=== PATIENT | male | born 1935 | race Caucasian/White ===

== ENCOUNTER 2020-01-24 07:01 | Observation (INO) ==
[~2020-01-24 07:01] MED LIST: BACITRACIN INJ 50,000 UNIT VIAL ONE; BUPIVACAINE 0.25% 30 ML VIAL ONE; LIDOCAINE HCL 1% 20 ML VIAL ONE
--- OUTSIDE RECORDS SUMMARY | 2020-01-24 07:05 | External Medical Summary | Continuity of Care Document ---
:1935 Author Name Gabriela Dominguez, Provider Address Unavailable Unavailable , Care Team Providers Name Role Phone Zan FELIX M.D., E. 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 02-Dec-2012 13:30 Encounter Diagnosis: Problem not documented
[2020-01-24] MEDS ORDERED: fentaNYL citrate 100 MCG/2 ML VIAL ONE (07:28)
[2020-01-24] MEDS ORDERED: CEFAZOLIN 250 MG/ML 1 GM VIAL ONE (07:28)
[2020-01-24] MEDS ORDERED: MIDAZOLAM HCL 5 MG/ML 1 ML VIAL ONE (07:28)
--- NOTE | 2020-01-24 07:56 | Pre Anesthesia Assessment ---
Date of Service January 24, 2020 Pre Sedation Assessment Vital Signs Temp Pulse Resp BP Pulse Ox 01/24/20 07:15 37.2 C 55 L 20 181/89 H 97 Cardiovascular + bradycardic Respiratory normal respiratory effort, lungs clear to auscultation Pre-Sedation Airway Assessment Smoking Status: Never smoker Hx Sleep Apnea: No Short, Thick Neck: No Thyromental Distance: > or= 3.5 Finger Breadths Oral Cavity: + WNL Mallampati Class: I ASA: ASA3 NPO Status Date of Last Intake of Fluids: 01/23/20 Time of Last Intake of Fluids: 22:00 Date of Last Intake of Solid Food: 01/23/20 Time of Last Intake of Solid Foods: 20:00 Procedure Planning Contraindications for Sedation: none Current Medications Reviewed: Yes Notes The planned sedation has been discussed with the patient. Informed Consent was obtained. I have identified the patient, determined the appropriateness of sedation and have assessed the patient immediately prior to the procedure. All medicine(s) and interventions are by my order.
--- NOTE | 2020-01-24 07:56 | History & Physical Bridge Note ---
Date of Service January 24, 2020 History & Physical Bridge Note I have examined the patient, reviewed the History & Physical and in the interval since the performance of the History & Physical I have noted the following changes of clinical significance: no changes noted
--- NOTE | 2020-01-24 09:37 | Post Anesthesia Assessment ---
Date of Service January 24, 2020 Post Sedation Assessment Vital Signs Temp Pulse Resp BP Pulse Ox 01/24/20 07:15 37.2 C 55 L 20 181/89 H 97 Recovery Score Activity: Moves 4 extremities Respiration: Deep Breath/Cough Circulation: +/-20% PreAnes Value Consciousness: Fully Awake Oxygen Saturation: > 92% On Room Air Discharge Sedation Level of Care: Fast Track Phase II Post Sedation Plan On clinical assessment, the patient appears to have tolerated the sedation without complications. Patient is recovering as anticipated. Patient will continue to be monitored by nursing and may be discharged when sedation discharge criteria are met per below protocol. Upon Completions of procedure up to 15 minutes continue every 5 minute vital signs and the P.A.R. score; then discharge to a Phase I or Fast Track to Phase II per the following guidelines: * Discharge Patient to appropriate Phase II area if PAR is 8 or greater or return to pre- procedure baseline. The post - procedure orders will be as directed. * If PAR score is less than 8 or not return to pre-procedure baseline then patient will follow Phase I monitoring till PAR is reached for Phase II. The Phase I may be done in procedure room or may call to secure a Phase I area. * If naloxone or flumazenil are used for reversal, hold in Phase I for continued monitoring from when last reversal dose was given for a minimum of 60 minutes or longer pending the nurse and/or physician discretion of patient condition before discharge to Phase II. Please call the Sedation Physician to re-evaluate and complete post-note for discharge to Phase II area. Do NOT discharge from procedure sedation or Phase 1 until post- sedation evaluation note is complete by procedure /sedation MD Sedation Discharge Instructions to be given to the patient at discharge to home.
[2020-01-24] MEDS ORDERED: ACETAMINOPHEN 325 MG TAB PO PRN (09:38)
[2020-01-24] MEDS ORDERED: OXYCODONE/ACETAMINOPHEN 5mg/325mg TAB PO PRN (09:38)
--- NOTE | 2020-01-24 09:38 | Operative Report ---
Post Operative Report Pre & Post Diagnosis SSS Operation Date: 01/24/20 08:00 <No data on this case meets the specified criteria> I identified the patient and participated in the time-out.: Yes Procedure Operation Date: 01/24/20 08:00 Actual Procedures p Pacer with A/V Leads (Dual) - Bianca Reilly DO EGM intracardiac HIS bundle mapping Surgeon Bianca Reilly DO Front Desk Receptionist none Estimated Blood Loss 20 Findings Consistent with Post-Op Diagnosis Specimens none Description of Procedure see official report I attest to the content of the Intraoperative Record and any orders documented therein. Any exceptions are noted below.
[2020-01-24] MEDS ORDERED: METOPROLOL TARTRATE 25 MG TAB PO PRN (09:39)
[2020-01-24] MEDS ORDERED: ASPIRIN 81 MG CHEW PO PRN (09:39)
[2020-01-24] MEDS ORDERED: INSULIN ASPART PER UNIT SQ SCH (09:45)
--- NOTE | 2020-01-24 10:04 | Discharge Summary ---
Date of Service January 25, 2020 Admission HPI Per Admitting Provider Pt admitted for elective ppm due to SSS. Admission Exam Per Admitting Provider aaox3, NAD NC/AT, EOMI Supple No JVD bradycardia S1/S2, No murmur CTA b/l no w/r/r soft nt/nd no LE edema b/l skin intact no focal deficits Principal Diagnosis SSS s/p ppm Discharge Exam aaox3, NAD NC/AT, EOMI Supple No JVD Nrl S1/S2, No murmur CTA b/l no w/r/r soft nt/nd no LE edema b/l skin intact no focal deficits left pectoral incision intact, no hematoma mild ecchymosis Discharge Data Allergies Allergy/AdvReac Type Severity Reaction Status Date / Time statins Allergy Cramping Uncoded 01/24/20 07:33 of the Muscles Procedures Performed Operation Date: 01/24/20 08:00 Actual Procedures p Pacer with A/V Leads (Dual) - Bianca Reilly, Ordered Studies ECG: AP-VS CXR: No PTX, leads in position Pacemaker Interrogation: Normal function and stable lead testing since implant 01/24/20 06:45 EP Lab Images for PACS ONCE Hospital Course (1) SSS (sick sinus syndrome): Total Time Total Time Spent Total Time Spent (In Minutes): 35 Total Time Includes: Examination of the Patient, Discharge Planning, Medication Reconciliation and Other Discharge Plan Discharge Items Patient Disposition: Home - Self-Care Reason For Visit: Sick Sinus Syndrome; Bradycardia Discharge Diagnosis: SSS s/p ppm Condition on Discharge: Good Activity: As commented below Activity Comment: do not lift the left elbow over the left shoulder for 1 month Lifting: No more than 10 pounds Lifting Comment: do not lift more than 10 pounds with the left arm for 2 weeks Bathing: Keep incision dry Bathing Comment: keep dressing on and dry until wound check Sexual Activity: After two weeks Non-emergency contact: [facility] Call non-emergency contact if: you have any medication questions Follow-up/Referrals: Judith Martinez PA-C [Primary Care Provider] - Diet: Heart Healthy Addtl Attending Provider Instructions: Device and wound check as scheduled next week in [facility] [place] Pending Studies at Discharge: No Stand-Alone Forms: [employer] Medications and DC Order Prescriptions: New metoprolol succinate 25 mg Tablet Extended Release 24 Hr 25 mg PO QAM 30 Days Qty: 30 RF: 0 Continued levothyroxine 25 mcg Tablet 25 mcg PO DAILY RF: 0 insulin aspart U-100 100 unit/mL Solution 1 sliding scale dose SUBCUT USEASDIRECTD RF: 0 aspirin 81 mg Tablet,Chewable 81 mg PO DAILY PRN (Reason: Chest Pain) RF: 0 lorazepam 1 mg Tablet 1 mg PO BID PRN (Reason: Anxiety) RF: 0 lisinopril 2.5 mg Tablet 2.5 mg PO DAILY RF: 0 metoprolol tartrate 25 mg Tablet 12.5 mg PO DAILY PRN (Reason: Palpitations) RF: 0 mirtazapine 7.5 mg Tablet 7.5 mg PO HS RF: 0 insulin glargine 24 units SC DAILY RF: 0 Discharge Orders: Discharge Order (Routine); Ordered 01/25/20 Ordered By: Bianca Reilly Admission Data Admit Date/Time: 01/24/20 08:44 Attending Provider: Bianca Reilly Admit Provider: Bianca Reilly Primary Care Provider: Judith Martinez
[2020-01-24] MEDS ORDERED: LORazepam 1 MG TAB PO PRN (10:31)
[2020-01-24] MEDS ORDERED: PHARMACY GLYCEMIC MGMT CONSULT PRN (10:37)
--- NOTE | 2020-01-24 10:41 | Pharmacy Report ---
Glycemic Control Consultation - Date of Service January 24, 2020 - Scope Scope: Glycemic Pharmacist consulted for glycemic control and to write orders per [facility] inpatient glycemic control protocol. - Objective Weight: 84.3 kg Accuchecks BSG (last 24hrs): 01/24/20 10:05 POC Glucose 153 H - Recent Pertinent Medications Outpatient Anti-diabetic Regimen: * Lantus 24 units qAM + Novolog * A1c = 7.8 % 06/2019 per patient report Risk Factors for Insulin Resistance: * Recent Surgery: s/p pacer placement (POD1) * Diet: T2DM - Assessment & Plan Assessment & Plan: ASSESSMENT: * Mr Dodd is an 85 y/o M with a PMH of T2DM who presents for pacer placement. * Interviewed patient - he did not take his Lantus this morning. Denies any hypoglycemia at home. Reports HbA1C of 7.8% in June of 2019. * Restart patient's home regimen of Lantus 24 units (dose now) and Novolog weight-based stress of 2. Patient's HbA1C indicates room for more Novolog. * ADA & AACE recommend a goal blood sugar range 140-180 mg/dl for the majority of critically ill & non-critically ill patients. However, more stringent targets may be selected in individual cases. Will utilize more stringent goal of 110-140mg/dl based on patient age & comorbidities. Additionally, tighter glycemic control is warranted to facilitate wound healing. PLAN FOR INPATIENT GLYCEMIC CONTROL: * Basal insulin * Lantus 24 units SQ daily * Bolus insulin * NovoLog per scale ACHS or Q6hrs while NPO * Goal Range: Low 110 mg/dL - High 140 mg/dL * Correction Factor: 30 mg/dL/unit * Nutritional / Prandial insulin per carb ratio of 1 unit per 9 grams CHO consumed Outpatient Recommendations * Patient follows closely with outpatient provider. * Ordered HbA1C for now (according to protocol). Okay to follow up with outpatient provider. Thank you.
[2020-01-24] MEDS: METOPROLOL SUCC 25MG EXT REL TAB PO SCH (11:40)
[2020-01-24] MEDS: INSULIN GLARGINE SOLOSTAR 100 UNITS/ML 3 ML PEN SC SCH (11:56)
[2020-01-24] MEDS: INSULIN ASPART 100 UNITS/ML 3 ML PEN SC SCH ×3 (11:58→22:00)
[2020-01-24] MEDS ORDERED: MIRTAZAPINE TAB 15 MG TAB PO SCH (21:00)
--- NOTE | 2020-01-25 06:00 | Electrocardiogram Report ---
Test Reason : Blood Pressure : / mmHG Vent. Rate : 061 BPM Atrial Rate : 061 BPM P-R Int : 230 ms QRS Dur : 126 ms QT Int : 464 ms P-R-T Axes : 000 029 007 degrees QTc Int : 467 ms Atrial-paced rhythm with prolonged AV conduction Right bundle branch block Abnormal ECG No previous ECGs available Confirmed by Gregory Martinez ([id number]) on 01/25/2020 6:00:32 AM Referred By: Bianca Reilly Confirmed By:Gregory Martinez
[2020-01-25] MEDS: INSULIN GLARGINE SOLOSTAR 100 UNITS/ML 3 ML PEN SC SCH (06:24)
[2020-01-25] MEDS ORDERED: LEVOTHYROXINE SODIUM 25 MCG TABLET PO SCH (06:30)
--- NOTE | 2020-01-25 07:26 | XRay Report ---
XR chest 2V PA/lateral HISTORY: Status post pacemaker placement. COMPARISON: None. FINDINGS: The lungs are clear. Cardiac silhouette is normal in size. No pleural effusions. No pneumot horax. Left-sided dual-chamber pacemaker. The leads appear intact. Suspect a small hiatus hernia. IMPRESSION: Status post left-sided dual-chamber pacemaker. No pneumothorax. ACT 112: Negative or not required by law. Electronically signed by: Kai Dobson M.D. 01/25/2020 7:25 AM
[2020-01-25] MEDS: METOPROLOL SUCC 25MG EXT REL TAB PO SCH (07:58)
[2020-01-25] MEDS: INSULIN ASPART 100 UNITS/ML 3 ML PEN SC SCH (07:59)
[2020-01-25 08:26] LABS: Estimated Average Glucose 192 mg/dl; Hemoglobin A1C 8.3 % (4.5-5.6)
--- NOTE | 2020-02-02 02:54 | Operative Report (OR) ---
DATE OF OPERATION: 01/24/2020 PREOPERATIVE DIAGNOSES: Sick sinus syndrome and PAT. POSTOPERATIVE DIAGNOSES: Sick sinus syndrome and PAT. PROCEDURE: Dual chamber (left bundle) rate responsive permanent pacemaker under fluoroscopic guidance along with peripheral venogram as well as intracardiac electrogram His recordings. SURGEON: Bianca Reilly DO. ASSISTANTS: None. ANESTHESIA: Monitored conscious sedation administered under my supervision by Chanda Hernandez. Start time 8:15, end time 9:32. A total of 3 mg of Versed and 75 mcg of fentanyl. INTRAVENOUS FLUIDS: 39 mL. ANTIBIOTICS: Two grams of Ancef. CONTRAST: 20 mL. BLOOD LOSS: 20 mL. URINE OUTPUT: Not applicable. SPECIMENS: None. FINDINGS: See below. DRAINS: None. INDICATIONS: This is an 85-year-old gentleman with past medical history for brief PAT on a Zio patch, hypertension, sick sinus syndrome, diabetes, ectopic atrial bradycardia, history of a Whipple procedure, anxiety, hyperlipidemia with statin intolerance. Due to his progression of his sick sinus syndrome as well as some PAT requiring AV promise blockers, he was recommended a pacemaker. CONSENT: Consent was obtained prior to the patient going into electrophysiology lab. The patient was informed of the risks, benefits and alternative procedure. Risks include but not limited to sudden cardiac , cardiac arrhythmias, cerebrovascular accident, myocardial infarction, injury to the blood vessels, chamber of the heart, lung, bleeding, and infection. The patient understood these risks and agreed with procedure as planned. Informed consent was obtained. DESCRIPTION OF THE PROCEDURE: The patient was brought into electrophysiology lab in fasting state. He was connected to continuous director cardiac. Timeout was performed to ensure patient identity and procedure correctly. The patient was prepped and draped over the left infraclavicular space in normal surgical standard fashion. Monitored conscious sedation was given throughout the procedure for patient's comfort level. [place] precautions maintained throughout the procedure. 10 mL of 1% lidocaine, bupivacaine mixture were given in the left deltopectoral groove. Incision was made in left deltopectoral groove. Blunt dissection performed down and then a peripheral venogram was performed to identify the axillary vein. Venous axillary access was obtained through a needle stick and a guidewire was inserted without any resistance. A 7-Malawian sheath was then inserted over the guidewire without any resistance. Dilator was removed and a second guidewire was inserted through the sheath to allow for retained venous access. Sheath was removed, flushed reinserted over the dilator, then reinserted over one of the guidewires. The guidewire and dilator were removed. Then the His outer sheath was advanced into the right ventricle over a Glidewire. The Glidewire and dilator removed. The pacing lead was advanced through the sheath and intracardiac electrogram mapping was performed of the His bundle region. The AH was found to be 118 milliseconds, HV 69 milliseconds. I then went to WONG 30 and marked where the His area was on my monitors screen then lisa an imaginary line down to the apex in about 2 cm down from the His on this imaginary line. I marked this on the monitor screen giving me a ballpark region where I wanted to place my left bundle lead. I then positioned this sheath and the lead in [place] onto the septum. I gave a series of clockwise turn on the lead to start screwing the lead into the septum, after a few turns, 1-2 turns each, I was paused and look at the electrograms on V1 being how my notch moved out to the right as well as looking at my lateral leads or my V6 V5 leads making sure that the pacing stim to the QRS peak start to shorten ____ positive as well I was looking at my impedance drops. Once I felt I was in a comfortable spot I then gave a puff of contrast through the sheath to see how well I was up against the septum and if necessary modify it further, then I slit the His sheath under fluoroscopic guidance. I kept the outer 7-Malawian sheath in while I placed the atrial lead 2. I did have to reposition the left bundle lead once. Over the retained guidewire, a 7-Malawian SafeSheath was advanced. The dilator and guidewire were removed. The right atrial lead was then advanced into right atrium and positioned into atrial appendage under fluoroscopic guidance. There was adequate pacing and sensing thresholds and no diaphragmatic stimulation with high output pacing. Then I slit the 7-Malawian sheath over the left bundle lead and then the sheath was sutured down using 0 silk ties to the pectoralis muscle, a pacemaker pocket was then created using blunt dissection over the pectoralis muscle within the pectoral fascia. Pocket was flushed with copious amounts of bacitracin saline wash and inspected for hemostasis. Pulse generator was then attached to leads making sure the pins were in appropriate position, passed set screw and set screws were all tightened. Pulse generator was then placed in the pocket, making sure the leads were lying flat beneath the device. A stay stitch using 0 silk suture was used to secure device to pectoralis muscle. The incision was then closed in 3-layer fashion with 2-0 Vicryl interrupted suture followed by 3-0 Vicryl interrupted suture, followed by a 4-0 Monocryl running stitch and Dermabond was applied followed by a Telfa and micropore dressing. EQUIPMENT: 1. The pulse generator is a [employer] [place] XT DR PHILIP Garrett [id number], serial number [id number]. 2. Right atrial lead Medtronic 5076-52 cm, serial #[id number]. 3. Right ventricular lead, Medtronic 3830-69 cm, serial #[id number]. INTRAOPERATIVE TESTIN. Right atrial lead: P waves 2.3 millivolts, impedance 535 ohms, threshold 0.3 volts at 0.4 milliseconds. 2. Left bundle lead: R-wave 7.1 millivolts, impedance 642 ohms, threshold 0.7 volts at 0.4 milliseconds. FINAL MEASUREMENTS THROUGH THE DEVICE: 1. Right atrial lead: P waves 2 millivolts, impedance 456 ohms, threshold 0.5 volts at 0.4 milliseconds. 2. Left bundle lead: R-wave 6.5 millivolts, impedance 684 ohms, threshold 0.5 volts at 0.4 milliseconds. FINAL PARAMETERS: MVP-R 60/130, right atrial amplitude 3.5 volts, pulse width 0.4 milliseconds, sensitivity 0.3 millivolts. Right ventricular amplitude 3.5 volts, pulse width 0.4 milliseconds, sensitivity 1.2 millivolts. IMPRESSION: Successful implantation of a dual chamber (left bundle) rate responsive permanent pacemaker along with a peripheral venogram and intracardiac electrogram mapping of the His bundle region, all under fluoroscopic guidance secondary to sick sinus syndrome. PLAN: Monitor patient overnight, 12-lead ECG, chest x-ray. He cannot lift the left elbow or left shoulder for 1 month. He cannot lift more than 10 pounds with the left arm for 2 weeks. He is to keep the dressing on and dry until his wound check next week and we will start him on metoprolol. I attest to the content of the Intraoperative Record and any orders documented therein. Any exception s are noted below.
== END 2020-01-25 09:56 | disposition home or self-care (01) ==
LOC: 2S 07:01 → EP 07:01
DX: Z79.82 Long term (current) use of aspirin; E78.5 Hyperlipidemia, unspecified; Z79.4 Long term (current) use of insulin; N18.3 Chronic kidney disease, stage 3 (moderate); Z85.07 Personal history of malignant neoplasm of pancreas; Z79.890 Hormone replacement therapy; Z89.412 Acquired absence of left great toe; E11.22 Type 2 diabetes mellitus with diabetic chronic kidney disease; E03.9 Hypothyroidism, unspecified; I47.1 Supraventricular tachycardia; E11.319 Type 2 diabetes mellitus with unspecified diabetic retinopathy without macular edema; I49.5 Sick sinus syndrome; F41.1 Generalized anxiety disorder; Z79.899 Other long term (current) drug therapy; I12.9 Hypertensive chronic kidney disease with stage 1 through stage 4 chronic kidney disease, or unspecified chronic kidney disease